=== PATIENT | male | born 1980 | race Caucasian/White ===

== ENCOUNTER 2019-09-11 09:12 | Outpatient (CLI) | payer OTHER | END 2019-09-11 09:41 | disposition home or self-care (01) | LOC: LAB 09:12 | DX: R10.84 Generalized abdominal pain (principal); J11.1 Influenza due to unidentified influenza virus with other respiratory manifestations; D64.0 Hereditary sideroblastic anemia; R05 Cough; R06.2 Wheezing; R50.9 Fever, unspecified ==

== ENCOUNTER 2019-11-12 14:02 | Emergency (ER) | payer OTHER ==
[~2019-11-12] VITALS: Ht 172.7 cm; Wt 86.2 kg
[2019-11-12] MEDS ORDERED: DICLOFENAC SODI75 MG PO (16:11)
[2019-11-12] MEDS ORDERED: NORFLEX100MG PO (16:11)
== END 2019-11-12 16:43 | disposition home or self-care (01) ==
LOC: ER 14:02
DX: S30.0XXA Contusion of lower back and pelvis, initial encounter (principal); W18.39XA Other fall on same level, initial encounter; Y93.89 Activity, other specified; Y92.018 Other place in single-family (private) house as the place of occurrence of the external cause; Y99.8 Other external cause status

== ENCOUNTER 2020-02-11 12:02 | Emergency (ER) | payer OTHER ==
[~2020-02-11] VITALS: Ht 172.7 cm; Wt 88.5 kg
[~2020-02-11 12:02] MED LIST: DICLOFENAC SODI75 MG PO; NORFLEX100MG PO
[2020-02-11] MEDS ORDERED: KETO10TA2 PO (16:12)
[2020-02-11] MEDS ORDERED: ORPHENADRINE C100 MG PO (16:12)
== END 2020-02-11 22:18 | disposition home or self-care (01) ==
LOC: ER 12:02
DX: S30.0XXA Contusion of lower back and pelvis, initial encounter (principal); W18.09XA Striking against other object with subsequent fall, initial encounter; Y93.89 Activity, other specified; Y92.89 Other specified places as the place of occurrence of the external cause; Y99.8 Other external cause status